=== PATIENT | male | born 1970 | race African-American/Black ===

== ENCOUNTER 2018-08-14 20:15 | Emergency (ER) | payer SELFPAY ==
[2018-08-14] MEDS ORDERED: Amoxicillin/Potassium Clav 875 MG TAB ONE (21:05)
[2018-08-14] MEDS ORDERED: predniSONE 20 MG TAB ONE (21:05)
== END 2018-08-14 21:10 | disposition home or self-care (01) ==
LOC: MADERS 20:15
DX: J20.9 Acute bronchitis, unspecified (principal); F32.9 Major depressive disorder, single episode, unspecified; F17.210 Nicotine dependence, cigarettes, uncomplicated; I10 Essential (primary) hypertension
CPT/HCPCS: 99283; J7506